=== PATIENT | female | born 1950 | race Caucasian/White ===

== ENCOUNTER → 2016-12-04 | Outpatient (CLI) | payer MEDICARE, OTHER ==
[~2016-12-04] MED LIST: ADVI200C9 PO; AMLO5TAB96 PO; CARV3.125 PO; DIPH2%T PO; FISH1000 PO; JUICE PLUS; LEVA500T33 PO; MAGN400C2 PO; OYST500T77 PO; SOMA350T PO; TYLE3 PO; ZANTTAB9 PO; ZINC30TA2 PO; [UNRECOGNIZED DRUG - CODE] PO
== END ==
LOC: CLAB 12:40
PROVIDERS: ATTEND Internal Medicine Cardiovascular Disease
DX: R06.02 Shortness of breath (principal)
CPT/HCPCS: 36415; 85379

== ENCOUNTER → 2017-07-19 | Outpatient (CLI) | payer MEDICARE, OTHER ==
[2017-07-19 10:49] LABS: ALBUMIN 3.2 GM/DL (3.4-5.0); ALT (GPT) 15 U/L (10-53); AST (GOT) 22 U/L (15-37); BICARBONATE 26.1 MEQ/L (21.0-32.0); BLOOD UREA NITROGEN 18 MG/DL (7-18); CALCIUM 9.1 MG/DL (8.5-10.1); CHLORIDE 105 MEQ/L (98-107); CHOLESTEROL 297 MG/DL (120-200); CREATININE 0.95 MG/DL (0.50-1.00); GLOMERULAR FILTRATION RATE 59 ML/MIN (>89); GLUCOSE,FASTING 128 MG/DL (74-99); SODIUM (NA) 139 MEQ/L (136-145)
[2017-07-19 10:52] LABS: ALKALINE PHOSPHATASE 139 U/L (45-117); CHOLESTEROL/ HDL RATIO 6.61 RATIO; HDL CHOLESTEROL 44.9 MG/DL (40.0-60.0); LDL CHOLESTEROL 196 MG/DL (0-99); TOTAL BILIRUBIN ADULT 0.3 MG/DL (0.2-1.0); TOTAL PROTEIN 7.5 GM/DL (6.4-8.2); TRIGLYCERIDES 281 MG/DL (42-150)
== END ==
LOC: CLAB 09:13
PROVIDERS: ATTEND Family Medicine
DX: E78.5 Hyperlipidemia, unspecified (principal)
CPT/HCPCS: 36415; 80053; 80061